=== PATIENT | male | born 1955 | race Two or more races ===

== ENCOUNTER → 2016-10-16 | Outpatient (CLI) | payer MEDICARE, OTHER ==
--- NOTE | 2016-10-16 10:41 | RADRPT ---
PROCEDURE: XR bilateral knees. CLINICAL INDICATION: Knee pain TECHNIQUE: PA weightbearing, AP weightbearing, lateral weight bearing and sunrise views are availa ble for review. COMPARISON: None available FINDINGS: Right knee: There is moderate osteoarthrosis involving the right medial tibial femoral compartment and lateral t ibial femoral compartment and mild osteoarthrosis involving the patellofemoral compartment. This is associated with joint space narrowing, subchondral sclerosis and osteophytosis. Left knee: There is moderate osteoarthrosis involving the left medial tibial femoral compartment and lateral t ibial femoral compartment and mild osteoarthrosis involving the patellofemoral compartment. This is associated with joint space narrowing, subchondral sclerosis and osteophytosis. There is otherwise normal mineralization, architecture and alignment. No fractures are identified. No osseous lesions are identified. The soft tissues are unremarkable. IMPRESSION: Moderate osteoarthrosis involving the right medial tibial femoral compartment and lateral tibial fem oral compartment and mild osteoarthrosis involving the patellofemoral compartment. Moderate osteoarthrosis involving the left medial tibial femoral compartment and lateral tibial femo ral compartment and mild osteoarthrosis involving the patellofemoral compartment. RPTAT: [facility] .David Bryan MD, MD Date Time Electronically viewed and signed by .David Bryan MD, on 10/16/2016 10:40 .B/
--- NOTE | 2016-10-16 11:00 | RADRPT ---
PROCEDURE: XR pelvis/left hip. CLINICAL INDICATION: Hip pain TECHNIQUE: AP pelvis/AP and lateral left hip views performed COMPARISON: No prior studies are available for comparison. FINDINGS: There is mild to moderate bilateral hip osteoarthrosis. This is associated with joint space narrowin g, subchondral sclerosis and osteophytosis. There is normal mineralization. No fractures or osseou s lesions are identified. The soft tissues are unremarkable. IMPRESSION: Mild to moderate bilateral hip osteoarthrosis. RPTAT: [facility] .David Bryan MD, MD Date Time Electronically viewed and signed by .David Bryan MD, on 10/16/2016 11:00 .B/
== END | disposition home or self-care (01) ==
LOC: HKI 09:41
PROVIDERS: ATTEND Orthopaedic Surgery
DX: M17.0 Bilateral primary osteoarthritis of knee (principal); M25.562 Pain in left knee; M25.561 Pain in right knee
CPT/HCPCS: 20610; 73502; 73564; G0463; J7327